=== PATIENT | female | born 1955 | race Caucasian/White ===

== ENCOUNTER 2019-02-20 02:55 | Emergency (ER) | payer OTHER ==
[~2019-02-20] VITALS: Ht 165.1 cm; Wt 66.2 kg
[2019-02-20 03:05] VITALS: Ht 165.1 cm; Wt 66.2 kg
[2019-02-20 03:34] LABS: BASOPHIL % 0.1 % (0-2); PLATELET COUNT 288 x10^3mcL (130-400); RED CELL DISTRIBUTION WIDTH 13.3 % (11.5-14.5)
[2019-02-20 03:46] LABS: microscopic required? YES; urine erythrocyte TRACE (NEGATIVE)
[2019-02-20 04:13] LABS: CALCIUM 9.3 mg/dL (8.5-10.1); CARBON DIOXIDE 24.9 mmol/L (21-32); CHLORIDE SERUM 97 mmol/L (98-107); CREATININE SERUM 0.9 mg/dL (0.6-1.0); GFR1 > 60 mL/min; GLUCOSE SERUM 166 mg/dL (74-106); POTASSIUM SERUM 4.1 mmol/L (3.5-5.1); SODIUM SERUM 134 mmol/L (136-145)
[2019-02-20 04:21] LABS: ALBUMIN 3.9 g/dL (3.4-5.0); ALKALINE PHOSPHATASE 148 U/L (46-116); ALT/SGPT 33 U/L (14-59); AST/SGOT 22 U/L (15-37); BILIRUBIN TOTAL 0.25 mg/dL (0.20-1.00); LIPASE 112 IU/L (73-393); TOTAL PROTEIN, SERUM 7.5 g/dL (6.4-8.2)
[2019-02-20] MEDS ORDERED: LIPI10 (04:44)
[2019-02-20] MEDS ORDERED: CITALOPRAM10 MG/5 ML (04:45)
[2019-02-20] MEDS ORDERED: NEXIUM40 MG (04:45)
[2019-02-20 10:49] VITALS: BP 128/80
== END 2019-02-20 10:49 | disposition short-term general hospital (02) ==
LOC: ED 02:55
PROVIDERS: Emergency Medicine
DX: K81.0 Acute cholecystitis (principal); F17.210 Nicotine dependence, cigarettes, uncomplicated; E78.00 Pure hypercholesterolemia, unspecified; Z91.041 Radiographic dye allergy status
CPT/HCPCS: 99406; J1885; J2405; J2543; J3490; Q0092